=== PATIENT | female | born 1945 | race Caucasian/White ===

== ENCOUNTER 2020-07-22 14:45 | Emergency (ER) | payer MEDICARE, BC ==
--- NOTE | 2020-07-22 15:51 | EDM.PDOC ---
<Jeromy Bar - Last Filed: 07/22/20 17:15> ED HPI GENERAL MEDICAL PROBLEM - General Chief Complaint: Abdominal Pain Stated Complaint: LEFT LOWER ABD PAIN Time Seen by Provider: 07/22/20 15:36 Source of Information: Reports: Patient History Limitations: Reports: No Limitations - History of Present Illness INITIAL COMMENTS - FREE TEXT/NARRATIVE: Patient presents for evaluation of lower abdominal pain, bloating, frequent stooling over the last 5 days. She had a previous episode earlier in the month, around 13 July, and that was self-limited. Beginning on Thursday, 18 July, she noticed a return of lower abdominal intermittent cramping and frequent light and eventually mucus filled stool. Her actual stool production is less but most of what she produces when she goes to have a bowel movement is a tannish colored mucus. She will have a dozen or so bowel movements per day. Food intake has been reduced because her appetite is less but if she eats it seems to make symptoms worse. She was evaluated in the urgent care on June and provided a stool sample which they were going to test for C. difficile. Results have not finalized yet. Earlier this month, she was placed on a course of clindamycin prior to an upcoming dental procedure. Since being seen in urgent care 2 days ago, feels as though her symptoms have worsened and she noticed a little bit of bloody tinge to the mucus output from the rectum. Her pain is lower abdomen but more left sided lower abdomen. No fever or chills. No real nausea but she does have reduced appetite and food intake. She does have a previous history of diverticulitis but nothing recently. Onset: Gradual Duration: Day(s): (5) Location: Reports: Abdomen. Denies: Back Quality: Reports: Ache, Burning, Dull Severity: Moderate Improves with: Reports: None Worsens with: Reports: Eating, Movement Context: Denies: Sick Contact Associated Symptoms: Reports: Loss of Appetite, Malaise. Denies: Nausea/Vomiting Abdominal Pain Score (Numeric/FACES): 10 - Related Data Allergies Allergy/AdvReac Type Severity Reaction Status Date / Time Penicillins Allergy Hives Verified 07/22/20 15:48 Home Meds: Home Meds traMADol [Take Home: traMADol 50 MG, 4 Tab Pack] 1 tab PO TID PRN 11/12/15 [History] L.acidoph,Paracasei, B.lactis [Probiotic] 1 each PO DAILY 07/22/20 [History] Levothyroxine 75 mcg PO ACBREAKFAST 07/22/20 [History] Loperamide [Imodium] 2 mg PO QID PRN 07/22/20 [History] lisinopriL [Lisinopril] 20 mg PO DAILY 07/22/20 [History] Past Medical History HEENT History: Reports: Impaired Vision Cardiovascular History: Reports: Arrhythmia Musculoskeletal History: Reports: Fracture Psychiatric History: Reports: Anxiety Endocrine/Metabolic History: Reports: Hypothyroidism Hematologic History: Reports: Blood Transfusion(s) Oncologic (Cancer) History: Reports: Breast - Past Surgical History Musculoskeletal Surgical History: Reports: Other (See Below) Social & Family History - Living Situation & Occupation Living situation: Reports: , with Spouse Occupation: Retired ED ROS GENERAL - Review of Systems Review Of Systems: See Below Constitutional: Reports: Malaise, Weakness, Decreased Appetite. Denies: Fever, Chills, Weight Loss HEENT: Reports: No Symptoms Respiratory: Reports: No Symptoms Cardiovascular: Reports: No Symptoms GI/Abdominal: Reports: Abdominal Pain, Decreased Appetite, Mucous in Stool. Denies: Distension : Reports: No Symptoms Musculoskeletal: Reports: No Symptoms ED EXAM, GI/ABD - Physical Exam Exam: See Below Exam Limited By: No Limitations General Appearance: Alert, Mild Distress Respiratory/Chest: No Respiratory Distress Cardiovascular: Tachycardia GI/Abdominal Exam: Tender (Lower abdomen with some left sided propensity to pain.), Abnormal Bowel Sounds (Frequent bowel sounds.). No: Distended, Guarding Course - Re-Assessments/Exams Free Text/Narrative Re-Assessment/Exam: 07/22/20 16:08 We will attempt to see if we can find the test result from stool sample given on Thursday. The clinic note indicates that if testing for C. difficile is negative the patient would be started empirically on Augmentin for suspected diverticulitis. If her other testing is negative, I would recommend CT scanning of the abdomen and pelvis prior to any antibiotic use. 07/22/20 17:15 I returned to review imaging and lab tests. The air pattern on the upright abdomen x-ray is nonspecific although there is a paucity of air in the descending and sigmoid colon region. Given her WBC count and tender abdomen, we need to look for diverticulitis as a possible cause of her symptoms. CT scan of the abdomen/pelvis with IV contrast will be ordered. On further investigation by staff, the C. difficile test ordered from the clinic 2 days ago was canceled by the lab because of the appearance of the specimen. I discussed with the patient that labs may cancel a C. difficile test if it is not obvious diarrhea. Mucus can represent C. difficile but in order to get a lab to run that specimen it may require some other notation in the orders. She will be given Toradol 30 mg IV and advance of the CT scan. Departure - Departure Disposition: Home, Self-Care 01 Clinical Impression: Clostridioides difficile infection - Discharge Information Referrals: PCP,None [Primary Care Provider] - Forms: ED Department Discharge Additional Instructions: Take metronidazole every 8 hrs until gone. Avoid all alcohol. Acetaminophen as needed for pain relief. Frequent hand washing with soap and water to limit spread. Diet as tolerated. See your doctor for recheck later in the week. <Eleno Garces G - Last Filed: 07/22/20 19:50> Course - Vital Signs Last Recorded V/S: Last Vital Signs Temp 36.2 C 07/22/20 15:41 Pulse 98 07/22/20 18:45 Resp 15 07/22/20 18:45 BP 94/38 L 07/22/20 18:45 Pulse Ox 93 L 07/22/20 18:45 - Orders/Labs/Meds Orders: Active Orders 24 hr Category Date Time Status Abdomen 1V Upright [CR] Stat Exams 07/22/20 15:57 Taken CDiff [CLOS DIFFICILE PCR W/REFLEX] [RM] Stat Lab 07/22/20 18:18 Results CLOSTRIDIUM DIFFICILE TOXIN [RM] Stat Lab 07/22/20 18:18 Results Sodium Chloride 0.9% [Normal Saline] 100 ml Med 07/22/20 17:30 Active IV ASDIRECTED Sodium Chloride 0.9% [Saline Flush] Med 07/22/20 17:11 Active 10 ml FLUSH ASDIRECTED PRN Saline Lock Insert [OM.PC] Routine Oth 07/22/20 17:11 Ordered Medication Orders Sodium Chloride (Normal Saline) 100 mls @ 3 mls/sec IV ASDIRECTED AUBREY Last Admin: 07/22/20 17:51 Dose: 3 mls/sec Documented by: FIEMSAR Sodium Chloride (Saline Flush) 10 ml FLUSH ASDIRECTED PRN PRN Reason: Keep Vein Open Last Admin: 07/22/20 17:51 Dose: 10 ml Documented by: GILLIAN Labs: Laboratory Tests 07/22/20 07/22/20 Range/Units 16:11 16:11 WBC 15.4 H (4.5-11.0) K/uL RBC 4.36 (3.30-5.50) M/uL Hgb 13.2 (12.0-15.0) g/dL Hct 40.7 (36.0-48.0) % MCV 93 (80-98) fL MCH 30 (27-31) pg MCHC 32 (32-36) % Plt Count 282 (150-400) K/uL Neut % (Auto) 82 H (36-66) % Lymph % (Auto) 7 L (24-44) % Ray % (Auto) 11 H (2-6) % Eos % (Auto) 0 L (2-4) % Baso % (Auto) 0 (0-1) % Sodium 136 L (140-148) mmol/L Potassium 4.1 (3.6-5.2) mmol/L Chloride 98 L (100-108) mmol/L Carbon Dioxide 25 (21-32) mmol/L Anion Gap 17.1 H (5.0-14.0) mmol/L BUN 16 (7-18) mg/dL Creatinine 1.3 H D (0.6-1.0) mg/dL Est Cr Clr Drug Dosing 31.79 mL/min Estimated GFR (MDRD) 40 L (>60) Glucose 111 H (74-106) mg/dL Calcium 8.1 L (8.5-10.1) mg/dL Total Bilirubin 0.4 (0.2-1.0) mg/dL AST 14 L (15-37) U/L ALT 17 (12-78) U/L Alkaline Phosphatase 49 (46-116) U/L C-Reactive Protein 14.07 H (0.0-0.3) mg/dL Total Protein 6.1 L (6.4-8.2) g/dL Albumin 2.5 L (3.4-5.0) g/dL Globulin 3.6 H (2.3-3.5) g/dL Albumin/Globulin Ratio 0.7 L (1.2-2.2) Lipase 50 L (73-393) U/L Meds: Medications Generic Name Dose Route Start Last Admin Trade Name Freq PRN Reason Stop Dose Admin Sodium Chloride 100 mls @ 3 mls/sec 07/22/20 17:30 07/22/20 17:51 Normal Saline IV 3 mls/sec ASDIRECTED AUBREY Administration Sodium Chloride 10 ml 07/22/20 17:11 07/22/20 17:51 Saline Flush FLUSH 10 ml ASDIRECTED PRN Administration Keep Vein Open Discontinued Medications Generic Name Dose Route Start Last Admin Trade Name Freq PRN Reason Stop Dose Admin Lactated Ringer's 1,000 mls @ 1,000 mls/hr 07/22/20 18:31 07/22/20 18:39 Ringers, Lactated IV 07/22/20 19:30 1,000 mls/hr BOLUS ONE Administration Iopamidol 100 ml 07/22/20 17:26 07/22/20 17:51 Isovue-300 (61%) IV 07/22/20 17:27 100 ml ONETIME ONE Administration Ketorolac Tromethamine 30 mg 07/22/20 17:14 07/22/20 17:31 Toradol IVPUSH 07/22/20 17:15 30 mg ONETIME ONE Administration Metronidazole 500 mg 07/22/20 19:38 07/22/20 19:45 Metronidazole PO 07/22/20 19:39 500 mg ONETIME ONE Administration Sodium Chloride 10 ml 07/22/20 17:26 07/22/20 17:30 Saline Flush FLUSH 07/22/20 17:27 10 ml ONETIME ONE Administration - Radiology Interpretation Free Text/Narrative:: CT abd/pelvis-IMPRESSION: Diffuse colonic wall thickening. Findings consistent with nonspecific colitis. Distended gallbladder with no gallbladder wall thickening, stones, sludge or pericholecystic fluid. Normal common bile duct. Dictated by Antwon Buitrago MD @ 07/22/2020 6:16:[address] Results Date: 07/22/20 CT Results Time: 18:29 Departure - Departure Time of Disposition: 19:55 Condition: Fair - Discharge Information *PRESCRIPTION DRUG MONITORING PROGRAM REVIEWED*: No *COPY OF PRESCRIPTION DRUG MONITORING REPORT IN PATIENT MARILEE: No Sepsis Event Note (ED) - Focused Exam Vital Signs: Vital Signs Temp Pulse Resp BP Pulse Ox 07/22/20 18:45 98 15 94/38 L 93 L 07/22/20 17:38 99 16 111/40 L 99 07/22/20 16:56 97 16 111/40 L 97 07/22/20 15:41 36.2 C 102 H 16 116/32 L 95 07/22/20 15:30 36.2 C 102 H 16 116/32 L 95
[2020-07-22] MEDS ORDERED: Sodium Chloride 0.9% 10 ML Syringe FLUSH PRN (17:11)
[2020-07-22] MEDS ORDERED: Ketorolac 30 MG/ML SDV IVPUSH ONE (17:14)
[2020-07-22] MEDS ORDERED: Sodium Chloride 0.9% 10 ML Syringe FLUSH ONE (17:26)
[2020-07-22] MEDS ORDERED: Iopamidol 612 MG/ML 500 ML Multipack Bottle IV ONE (17:26)
[2020-07-22] MEDS ORDERED: Sodium Chloride 0.9% 100 ML IV SCH (17:30)
--- NOTE | 2020-07-22 18:18 | CRLCT ---
INDICATION: Left lower quadrant pain, diarrhea TECHNIQUE: CT abdomen and pelvis acquired with IV contrast. 100 cc Isovue-300 COMPARISON: None FINDINGS: Lower chest: Unremarkable. Liver: 2.8 centimeter x 2.5 centimeter lobulated cyst versus multiple small cysts with thin septations involving the inferior right lobe. Spleen: Unremarkable. Pancreas: Unremarkable. Gallbladder and bile ducts: Distended gallbladder with no gallbladder wall thickening, stones, sludge or pericholecystic fluid. Normal appearing common bile duct. Kidneys: Unremarkable. Adrenal glands: Unremarkable. GI tract: Diffuse colonic wall thickening more prominent involving the transverse colon. Findings consistent with nonspecific colitis.. Appendix is normal. Vascular structures: Unremarkable. Lymph nodes: Unremarkable. Miscellaneous: Unremarkable. No free air or significant free fluid. Pelvic Organs: Prominent periuterine veins. Diffuse urinary bladder wall thickening. Bones: Unremarkable for age. IMPRESSION: Diffuse colonic wall thickening. Findings consistent with nonspecific colitis. Distended gallbladder with no gallbladder wall thickening, stones, sludge or pericholecystic fluid. Normal common bile duct. Dictated by Antwon Buitrago MD @ 07/22/2020 6:16:42 PM Please note that all CT scans at this facility use dose modulation, iterative reconstruction, and/or weight-based dosing when appropriate to reduce radiation dose to as low as reasonably achievable. Dictated by: Antwon Buitrago MD @ 07/22/2020 18:16:53 (Electronically Signed)
[2020-07-22] MEDS ORDERED: Lactated Ringers 1,000 ML IV ONE (18:31)
[2020-07-22 18:46] VITALS: BP 94/38; PULSE 98
[2020-07-22] MEDS ORDERED: metroNIDAZOLE 250 MG Tab PO ONE (19:38)
--- NOTE | 2020-07-23 15:20 | CR ---
Abdomen 1V Upright CLINICAL HISTORY: Lower abdominal pain and cramping FINDINGS: There are scattered air-filled loops of small bowel and colon. Small intestinal configuration is nonacute. There is some appearance of haustral thickening in the hepatic flexure and distal transverse colon. IMPRESSION: Posterolateral thickening in the hepatic and splenic flexure region suggests possible colonic mucosal thickening
== END 2020-07-22 20:05 | disposition home or self-care (01) ==
LOC: JP.ED 14:45
DX: B96.89 Other specified bacterial agents as the cause of diseases classified elsewhere (principal); R00.0 Tachycardia, unspecified; Z88.0 Allergy status to penicillin; Z79.899 Other long term (current) drug therapy
CPT/HCPCS: 36415; 74018; 74177; 80053; 83690; 85025; 86140; 87493; 96361; 96374; 99284; A9270; J1885; J7050; J7120; Q9967

== ENCOUNTER 2020-07-23 23:23 | Emergency (ER) | payer MEDICARE, BC ==
[2020-07-23] MEDS ORDERED: Lactated Ringers 1,000 ML IV ONE (23:30)
[2020-07-23] MEDS ORDERED: Ondansetron 4 MG Tab.DIS PO PRN (23:40)
[2020-07-23] MEDS ORDERED: Ketorolac 30 MG/ML SDV IVPUSH PRN (23:40)
[2020-07-23] MEDS ORDERED: LORazepam 2 MG/ML SDV IV PRN (23:40)
[2020-07-23] MEDS ORDERED: Ondansetron 4 MG/2 ML SDV IV PRN (23:40)
[2020-07-23] MEDS ORDERED: Acetaminophen 325 MG Tab PO PRN (23:40)
[2020-07-23] MEDS ORDERED: Ibuprofen 600 MG Tab PO PRN (23:40)
[2020-07-23] MEDS ORDERED: Lactobacillus Rhamnosus GG (Probiotic) Cap PO SCH (23:45)
[2020-07-24] MEDS ORDERED: Vancomycin 250 MG/5 ML ML Oral Solution PO SCH
--- NOTE | 2020-07-24 00:06 | EDM.PDOC ---
ED HPI GENERAL MEDICAL PROBLEM - General Chief Complaint: Abdominal Pain Stated Complaint: ABD PAIN Time Seen by Provider: 07/23/20 23:55 Source of Information: Reports: Patient, Old Records, RN History Limitations: Reports: No Limitations - History of Present Illness INITIAL COMMENTS - FREE TEXT/NARRATIVE: 75 yo female was seen in the ER last night and dx with c.diff colitis. Her wbc ct was a little high at 15K, but her vitals were normal. Her CT showed some colonic wall thickening. She was sent home on oral metronidazole, but since then has gotten more distended and weak. No fever. Here for reevaluation. Onset: Gradual Duration: Day(s):, Getting Worse Location: Reports: Abdomen Quality: Reports: Pressure Severity: Moderate Improves with: Reports: None Worsens with: Reports: Other (time) Context: Reports: Other (See HPI) Associated Symptoms: Reports: Weakness. 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 (see below) (metronidazole) Abdomen Pain Score (Numeric/FACES): 10 - Related Data Allergies Allergy/AdvReac Type Severity Reaction Status Date / Time Penicillins Allergy Hives Verified 07/23/20 23:46 Home Meds: Home Meds traMADol [Take Home: traMADol 50 MG, 4 Tab Pack] 1 tab PO TID PRN 11/12/15 [History] L.acidoph,Paracasei, B.lactis [Probiotic] 1 each PO DAILY 07/22/20 [History] Levothyroxine 75 mcg PO ACBREAKFAST 07/22/20 [History] Loperamide [Imodium] 2 mg PO QID PRN 07/22/20 [History] lisinopriL [Lisinopril] 20 mg PO DAILY 07/22/20 [History] metroNIDAZOLE [Flagyl] 500 mg PO TID 07/23/20 [History] Past Medical History HEENT History: Reports: Impaired Vision Cardiovascular History: Reports: Arrhythmia Other Cardiovascular History: PVC Respiratory History: Reports: None Gastrointestinal History: Reports: Diverticulosis, Other (See Below) Other Gastrointestinal History: colitis and c diff Genitourinary History: Reports: None 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: Musculoskeletal History: Reports: Fracture Other Musculoskeletal History: chronic foot pain Neurological History: Reports: Neuropathy, Peripheral Psychiatric History: Reports: Anxiety Endocrine/Metabolic History: Reports: Hypothyroidism Hematologic History: Reports: Blood Transfusion(s) Oncologic (Cancer) History: Reports: Breast Dermatologic History: Reports: None - Infectious Disease History Infectious Disease History: Reports: Chicken Pox, Measles - Past Surgical History GI Surgical History: Reports: Colonoscopy Neurological Surgical History: Reports: Laminectomy Musculoskeletal Surgical History: Reports: Other (See Below) Social & Family History - Tobacco Use Smoking Status *Q: Never Smoker Second Hand Smoke Exposure: No - Caffeine Use Caffeine Use: Reports: Coffee - Alcohol Use Days Per Week of Alcohol Use: 7 Number of Drinks Per Day: 1 Total Drinks Per Week: 7 - Recreational Drug Use Recreational Drug Use: No - Living Situation & Occupation Living situation: Reports: , with Spouse Occupation: Retired ED ROS GENERAL - Review of Systems Review Of Systems: See Below Constitutional: Reports: Malaise, Weakness, Decreased Appetite HEENT: Reports: No Symptoms Respiratory: Reports: No Symptoms Cardiovascular: Reports: Lightheadedness Endocrine: Reports: No Symptoms GI/Abdominal: Reports: Abdominal Pain, Diarrhea, Distension, Mucous in Stool. Denies: Black Stool, Bloody Stool, Hematemesis, Hematochezia, Melena, Nausea, Vomiting : Reports: No Symptoms Musculoskeletal: Reports: No Symptoms Skin: Reports: No Symptoms ED EXAM, GI/ABD - Physical Exam Exam: See Below Exam Limited By: No Limitations General Appearance: Alert, WD/WN, Mild Distress Eyes: Bilateral: Normal Appearance Ears: Normal External Exam, Normal Canal, Hearing Grossly Normal, Normal TMs Nose: Normal Inspection, No Blood Throat/Mouth: Normal Inspection, Normal Lips, Normal Oropharynx, Normal Voice, No Airway Compromise Head: Atraumatic, Normocephalic Neck: Normal Inspection Respiratory/Chest: No Respiratory Distress, Lungs Clear, Normal Breath Sounds, No Accessory Muscle Use Cardiovascular: Regular Rate, Rhythm, No Edema, Tachycardia GI/Abdominal Exam: Distended, Guarding, Tender. No: Soft, No Distention, Rigid, Rebound Back Exam: Normal Inspection. No: CVA Tenderness (R), CVA Tenderness (L) Extremities: Normal Inspection, Normal Range of Motion, Non-Tender, No Pedal Edema Neurological: Alert, Oriented, CN II-XII Intact, Normal Cognition, No Motor/Sensory Deficits Psychiatric: Normal Affect, Normal Mood Skin Exam: Warm, Dry, Intact, Normal Color, No Rash Course - Orders/Labs/Meds Orders: Active Orders 24 hr Category Date Time Status Patient Status Manage Transfer [TRANSFER] Routine ADT 07/23/20 23:47 Active Patient Status [ADT] Routine ADT 07/23/20 23:40 Active Bedrest Bedside Commode [RC] ASDIRECTED Care 07/23/20 23:40 Active Cardiac Monitoring [RC] CONTINUOUS Care 07/23/20 23:42 Active Oxygen Therapy [RC] PRN Care 07/23/20 23:40 Active Pulse Oximetry [RC] CONTINUOUS Care 07/23/20 23:42 Active Up With Assistance [RC] ASDIRECTED Care 07/23/20 23:40 Active VTE/DVT Education [RC] Per Unit Routine Care 07/23/20 23:40 Active Vital Signs [RC] Q4H Care 07/23/20 23:40 Active Full Liquid Diet [DIET] Diet 07/23/20 Breakfast Ordered CBC W/O DIFF,HEMOGRAM [HEME] Stat Lab 07/23/20 23:50 Received COMPREHENSIVE METABOLIC PN,CMP [CHEM] Stat Lab 07/23/20 23:50 Received LACTIC ACID [CHEM] Stat Lab 07/23/20 23:50 Received Acetaminophen [TylenoL] Med 07/23/20 23:40 Ordered 650 mg PO Q4H PRN Dextrose 5%-0.9% NaCl [Dextrose 5%-Normal Saline] 1,000 Med 07/23/20 23:45 Ordered ml IV ASDIRECTED Ibuprofen [Motrin] Med 07/23/20 23:40 Ordered 600 mg PO Q6H PRN Ketorolac [Toradol] Med 07/23/20 23:40 Ordered 30 mg IVPUSH Q6H PRN LORazepam [Ativan] Med 07/23/20 23:40 Ordered 1 mg IV Q6H PRN Lactated Ringers [Ringers, Lactated] 1,000 ml Med 07/23/20 23:30 Active IV BOLUS Lactobacillus Rhamnosus GG [Culturelle] Med 07/23/20 23:45 Ordered 2 cap PO BID Ondansetron [Zofran ODT] Med 07/23/20 23:40 Ordered 4 mg PO Q6H PRN Ondansetron [Zofran] Med 07/23/20 23:40 Ordered 4 mg IV Q4H PRN Vancomycin [Vancocin 250 MG/5 ML Soln] Med 07/24/20 06:00 Ordered 250 mg PO QID Resuscitation Status Routine Resus Stat 07/23/20 23:40 Ordered Medication Orders Acetaminophen (Tylenol) 650 mg PO Q4H PRN PRN Reason: Pain (Mild 1-3)/fever Lactated Ringer's (Ringers, Lactated) 1,000 mls @ 1,000 mls/hr IV BOLUS ONE Stop: 07/24/20 00:29 Dextrose/Sodium Chloride (Dextrose 5%-Normal Saline) 1,000 mls @ 150 mls/hr IV ASDIRECTED [facility] Ibuprofen (Motrin) 600 mg PO Q6H PRN PRN Reason: Pain/Fever Ketorolac Tromethamine (Toradol) 30 mg IVPUSH Q6H PRN PRN Reason: Pain (moderate 4-6) Lactobacillus Rhamnosus (Culturelle) 2 cap PO BID AUBREY Lorazepam (Ativan) 1 mg IV Q6H PRN PRN Reason: Nausea/Vomiting Ondansetron HCl (Zofran Odt) 4 mg PO Q6H PRN PRN Reason: Nausea able to take PO Ondansetron HCl (Zofran) 4 mg IV Q4H PRN PRN Reason: Nausea/Vomiting Vancomycin HCl (Vancocin 250 Mg/5 Ml Soln) 250 mg PO QID [facility] Meds: Medications Generic Name Dose Route Start Last Admin Trade Name Freq PRN Reason Stop Dose Admin Acetaminophen 650 mg 07/23/20 23:40 Tylenol PO Q4H PRN Pain (Mild 1-3)/fever Lactated Ringer's 1,000 mls @ 1,000 mls/hr 07/23/20 23:30 Ringers, Lactated IV 07/24/20 00:29 BOLUS ONE Dextrose/Sodium Chloride 1,000 mls @ 150 mls/hr 07/23/20 23:45 Dextrose 5%-Normal Saline IV ASDIRECTED [facility] Ibuprofen 600 mg 07/23/20 23:40 Motrin PO Q6H PRN Pain/Fever Ketorolac Tromethamine 30 mg 07/23/20 23:40 Toradol IVPUSH Q6H PRN Pain (moderate 4-6) Lactobacillus Rhamnosus 2 cap 07/23/20 23:45 Culturelle PO BID AUBREY Lorazepam 1 mg 07/23/20 23:40 Ativan IV Q6H PRN Nausea/Vomiting Ondansetron HCl 4 mg 08/31/20 23:40 Zofran Odt PO Q6H PRN Nausea able to take PO Ondansetron HCl 4 mg 07/23/20 23:40 Zofran IV Q4H PRN Nausea/Vomiting Vancomycin HCl 250 mg 07/24/20 06:00 Vancocin 250 Mg/5 Ml Soln PO QID AUBREY Departure - Departure Time of Disposition: 00:06 Disposition: Admitted As Inpatient 65 Condition: Serious Clinical Impression: Clostridium difficile colitis - Discharge Information *COPY OF PRESCRIPTION DRUG MONITORING REPORT IN PATIENT MARILEE: Not Applicable Referrals: PCP,None [Primary Care Provider] - - My Orders Last 24 Hours: My Active Orders 07/23/20 23:30 Lactated Ringers [Ringers, Lactated] 1,000 ml IV BOLUS 07/23/20 23:50 CBC W/O DIFF,HEMOGRAM [HEME] Stat - Assessment/Plan Last 24 Hours: My Active Orders 07/23/20 23:30 Lactated Ringers [Ringers, Lactated] 1,000 ml IV BOLUS 07/23/20 23:50 CBC W/O DIFF,HEMOGRAM [HEME] Stat
[2020-07-24] MEDS ORDERED: Ondansetron 4 MG/2 ML SDV IM ONE (00:07)
[2020-07-24] MEDS ORDERED: Ketorolac 30 MG/ML SDV IVPUSH ONE (00:07)
[2020-07-24] MEDS ORDERED: Ondansetron 4 MG/2 ML SDV IVPUSH ONE (00:17)
[2020-07-24] MEDS ORDERED: Lactated Ringers 1,000 ML IV ONE (00:38)
[2020-07-24] MEDS ORDERED: Vancomycin 250 MG/5 ML ML Oral Solution PO STA (00:40)
--- NOTE | 2020-07-24 00:49 | PCM.HP.2 ---
H&P History of Present Illness - General Date of Service: 07/24/20 Admit Problem/Dx: Admission Diagnosis/Problem Admission Diagnosis/Problem Clostridium difficile enterocolitis Source of Information: Patient, Old Records History Limitations: Reports: No Limitations - History of Present Illness Initial Comments - Free Text/Narative: Patient is a 75yo female who was diagnosed with C.diff colitis last night and now presents with worsening symptoms. She is being admitted to the hospital for intractable pain and worsening diarrhea. Upon review of labs after admission the patient is found to have fulminant c. diff colitis with signs of septic shock. Patient has elevated lactate, WBC, Creatinine, BUN, and also has decreased albumin. Patient's BP is low at 85/55 with fluids. Patient will be started on PO Vancomycin prior to leaving hospital, as well as working towards 30cc/kg fluid rehydration. Onset of Symptoms: Reports: Unknown/Unsure Abdomen Pain Score (Numeric/FACES): 10 - Related Data Allergies/Adverse Reactions: Allergies Allergy/AdvReac Type Severity Reaction Status Date / Time Penicillins Allergy Hives Verified 07/23/20 23:46 Home Medications: Home Meds traMADol [Take Home: traMADol 50 MG, 4 Tab Pack] 1 tab PO TID PRN 11/12/15 [History] L.acidoph,Paracasei, B.lactis [Probiotic] 1 each PO DAILY 07/22/20 [History] Levothyroxine 75 mcg PO ACBREAKFAST 07/22/20 [History] Loperamide [Imodium] 2 mg PO QID PRN 07/22/20 [History] lisinopriL [Lisinopril] 20 mg PO DAILY 07/22/20 [History] metroNIDAZOLE [Flagyl] 500 mg PO TID 07/23/20 [History] Past Medical History HEENT History: Reports: Impaired Vision Cardiovascular History: Reports: Arrhythmia Other Cardiovascular History: PVC Respiratory History: Reports: None Gastrointestinal History: Reports: Diverticulosis, Other (See Below) Other Gastrointestinal History: colitis and c diff Genitourinary History: Reports: None 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: Musculoskeletal History: Reports: Fracture Other Musculoskeletal History: chronic foot pain Neurological History: Reports: Neuropathy, Peripheral Psychiatric History: Reports: Anxiety Endocrine/Metabolic History: Reports: Hypothyroidism Hematologic History: Reports: Blood Transfusion(s) Oncologic (Cancer) History: Reports: Breast Dermatologic History: Reports: None - Infectious Disease History Infectious Disease History: Reports: Chicken Pox, Measles - Past Surgical History GI Surgical History: Reports: Colonoscopy Neurological Surgical History: Reports: Laminectomy Musculoskeletal Surgical History: Reports: Other (See Below) Social & Family History - Tobacco Use Smoking Status *Q: Never Smoker Second Hand Smoke Exposure: No - Caffeine Use Caffeine Use: Reports: Coffee - Alcohol Use Days Per Week of Alcohol Use: 7 Number of Drinks Per Day: 1 Total Drinks Per Week: 7 - Recreational Drug Use Recreational Drug Use: No - Living Situation & Occupation Living situation: Reports: , with Spouse Occupation: Retired H&P Review of Systems - Review of Systems: Review Of Systems: See Below General: Reports: Fever, Chills, Weakness, Decreased Appetite HEENT: Reports: No Symptoms Pulmonary: Reports: No Symptoms Cardiovascular: Reports: No Symptoms Gastrointestinal: Reports: Abdominal Pain, Anorexia, Diarrhea, Distension Genitourinary: Reports: No Symptoms Musculoskeletal: Reports: No Symptoms Skin: Reports: Mottled, Pallor Psychiatric: Reports: No Symptoms Neurological: Reports: No Symptoms Hematologic/Lymphatic: Reports: No Symptoms Immunologic: Reports: No Symptoms Exam - Exam Exam: See Below - Vital Signs Vital Signs: Last Vital Signs Temp 35.8 C L 07/24/20 00:28 Pulse 104 H 07/24/20 00:28 Resp 16 07/24/20 00:28 BP 85/47 L 07/24/20 00:28 Pulse Ox 91 L 07/24/20 00:28 Weight: 55.338 kg - Exam General: Alert, Oriented, Cooperative, Moderate Distress HEENT: PERRLA, Hearing Intact, Mucosa Moist & [place], Nares Patent, Normal Nasal Septum, Posterior Pharynx Clear, Conjunctiva Clear, EOMI, EACs Clear, TMs Clear Neck: Supple, Trachea Midline, 2 Lungs: Clear to Auscultation, Normal Respiratory Effort Cardiovascular: Regular Rhythm, Normal S1, Normal S2, Tachycardia GI/Abdominal Exam: Distended (unable to palpate beyond light touch due to extreme pain), Rebound (unable to palpate beyond light touch due to extreme pain) (Female) Exam: Deferred Rectal (Female) Exam: Deferred Back Exam: Normal Inspection, Full Range of Motion, NT Extremities: Normal Inspection, Normal Range of Motion, Non-Tender, No Pedal Edema, Slow Capillary Refill. No: Normal Capillary Refill Skin: Dry, Intact Neurological: Cranial Nerves Intact, Reflexes Equal Bilateral Neuro Extensive - Mental Status: Alert, Oriented x3, Normal Mood/Affect, Normal Cognition Neuro Extensive - Motor, Sensory, Reflexes: CN II-XII Intact, Normal Gait, Normal Reflexes Psychiatric: Alert, Normal Affect, Normal Mood - Patient Data Lab Results Last 24 hrs: Laboratory Results - last 24 hr 07/23/20 07/23/20 07/23/20 Range/Units 23:50 23:50 23:50 WBC 24.2 H (4.5-11.0) K/uL RBC 4.92 (3.30-5.50) M/uL Hgb 14.5 (12.0-15.0) g/dL Hct 44.7 (36.0-48.0) % MCV 91 (80-98) fL MCH 30 (27-31) pg MCHC 32 (32-36) % Plt Count 262 (150-400) K/uL Sodium 134 L (140-148) mmol/L Potassium 4.1 (3.6-5.2) mmol/L Chloride 98 L (100-108) mmol/L Carbon Dioxide 21 (21-32) mmol/L Anion Gap 19.1 H (5.0-14.0) mmol/L BUN 38 H D (7-18) mg/dL Creatinine 3.0 H D (0.6-1.0) mg/dL Est Cr Clr Drug Dosing 13.78 mL/min Estimated GFR (MDRD) 15 L (>60) Glucose 145 H (74-106) mg/dL Lactic Acid 5.0 H (0.4-2.0) mmol/L Calcium 7.9 L (8.5-10.1) mg/dL Total Bilirubin 0.4 (0.2-1.0) mg/dL AST 25 D (15-37) U/L ALT 20 (12-78) U/L Alkaline Phosphatase 54 (46-116) U/L Total Protein 5.8 L (6.4-8.2) g/dL Albumin 2.1 L (3.4-5.0) g/dL Globulin 3.7 H (2.3-3.5) g/dL Albumin/Globulin Ratio 0.6 L (1.2-2.2) Result Diagrams: 07/23/20 23:50 07/23/20 23:50 Sepsis Event Note - Evaluation Sepsis Screening Result: Possible Severe Sepsis Risk - Focused Exam Vital Signs: Vital Signs Temp Pulse Resp BP Pulse Ox 07/24/20 00:28 35.8 C L 104 H 16 85/47 L 91 L 07/23/20 23:59 35.8 C L 109 H 16 79/44 L 94 L - Problem List (1) Septic shock due to Clostridium difficile SNOMED Code(s): 0247120048537202 ICD Code: A41.4 - SEPSIS DUE TO ANAEROBES; R65.21 - SEVERE SEPSIS WITH SEPTIC SHOCK Status: Acute Current Visit: Yes Onset Date: ~07/23/20 Problem Details: Patient due to pain and concern for fulminant or widespread C.diff will be transferred to [facility] per patient's request. Patient is hypotensive but responsive. Will start norepinephrine at 4mcg/min drip to maintain a map >65. Oral vancomycin started at 250mg PO, as well as IV metronidazole 500mg (2) Clostridium difficile colitis SNOMED Code(s): 849692903 ICD Code: A04.72 - ENTEROCOLITIS D/T CLOSTRIDIUM DIFFICILE, NOT SPCF RECUR Status: Acute Current Visit: Yes Onset Date: Unknown Problem Details: Patient due to pain and concern for fulminant or widespread C.diff will be transferred to [facility] per patient's request. Patient is hypotensive but responsive. Will start norepinephrine at 4mcg/min drip to maintain a map >65. Oral vancomycin started at 250mg PO, as well as IV metronidazole 500mg Problem List Initiated/Reviewed/Updated: Yes Orders Last 24hrs: Active Orders 24 hr Category Date Time Status Patient Status Manage Transfer [TRANSFER] Routine ADT 07/23/20 23:47 Active Patient Status [ADT] Routine ADT 07/23/20 23:40 Active Bedrest Bedside Commode [RC] ASDIRECTED Care 07/23/20 23:40 Active Cardiac Monitoring [RC] CONTINUOUS Care 07/23/20 23:42 Active Oxygen Therapy [RC] PRN Care 07/23/20 23:40 Active Pulse Oximetry [RC] CONTINUOUS Care 07/23/20 23:42 Active Up With Assistance [RC] ASDIRECTED Care 07/23/20 23:40 Active VTE/DVT Education [RC] Per Unit Routine Care 07/23/20 23:40 Active Vital Signs [RC] Q4H Care 07/23/20 23:40 Active Full Liquid Diet [DIET] Diet 07/23/20 Breakfast Ordered Acetaminophen [TylenoL] Med 07/23/20 23:40 Active 650 mg PO Q4H PRN Dextrose 5%-0.9% NaCl [Dextrose 5%-Normal Saline] 1,000 Med 07/25/20 00:30 Active ml IV ASDIRECTED Ibuprofen [Motrin] Med 07/23/20 23:40 Active 600 mg PO Q6H PRN Ketorolac [Toradol] Med 07/23/20 23:40 Active 30 mg IVPUSH Q6H PRN LORazepam [Ativan] Med 07/23/20 23:40 Active 1 mg IV Q6H PRN Lactated Ringers [Ringers, Lactated] 1,000 ml Med 07/24/20 00:38 Ordered IV BOLUS Lactobacillus Rhamnosus GG [Culturelle] Med 07/23/20 23:45 Active 2 cap PO BID Levothyroxine Med 07/24/20 07:30 Active 75 mcg PO ACBREAKFAST Ondansetron [Zofran ODT] Med 07/23/20 23:40 Active 4 mg PO Q6H PRN Ondansetron [Zofran] Med 07/23/20 23:40 Active 4 mg IV Q4H PRN Vancomycin [Vancocin 250 MG/5 ML Soln] Med 07/24/20 00:00 Active 250 mg PO QID Resuscitation Status Routine Resus Stat 07/23/20 23:40 Ordered Medication Orders Acetaminophen (Tylenol) 650 mg PO Q4H PRN PRN Reason: Pain (Mild 1-3)/fever Dextrose/Sodium Chloride (Dextrose 5%-Normal Saline) 1,000 mls @ 150 mls/hr IV ASDIRECTED AUBREY Lactated Ringer's (Ringers, Lactated) 1,000 mls @ 999 mls/hr IV BOLUS ONE Stop: 07/24/20 01:38 Ibuprofen (Motrin) 600 mg PO Q6H PRN PRN Reason: Pain/Fever Ketorolac Tromethamine (Toradol) 30 mg IVPUSH Q6H PRN PRN Reason: Pain (moderate 4-6) Lactobacillus Rhamnosus (Culturelle) 2 cap PO BID AUBREY Levothyroxine Sodium (Levothyroxine) 75 mcg PO ACBREAKFAST AUBREY Lorazepam (Ativan) 1 mg IV Q6H PRN PRN Reason: Nausea/Vomiting Ondansetron HCl (Zofran Odt) 4 mg PO Q6H PRN PRN Reason: Nausea able to take PO Ondansetron HCl (Zofran) 4 mg IV Q4H PRN PRN Reason: Nausea/Vomiting Vancomycin HCl (Vancocin 250 Mg/5 Ml Soln) 250 mg PO QID AUBREY
[2020-07-24] MEDS: Vancomycin 1 GM SDV ONE ×2 (00:52→01:01)
[2020-07-24] MEDS ORDERED: metroNIDAZOLE/Normal Saline 500 MG in Premix Bag 1 BAG IV ONE (01:00)
[2020-07-24] MEDS ORDERED: Norepinephrine 4 MG in Dextrose 5% in Water 246 ML IV SCH ×2 (01:15)
[2020-07-24 02:01] VITALS: BP 100/51; PULSE 99
[2020-07-24] MEDS ORDERED: Levothyroxine 25 MCG Tab PO SCH (07:30)
[2020-07-25] MEDS ORDERED: Dextrose 5%-0.9% NaCl 1,000 ML IV SCH (00:30)
== END 2020-07-24 01:50 | disposition critical access hospital (66) ==
LOC: JP.ED 23:23
DX: A04.72 Enterocolitis due to Clostridium difficile, not specified as recurrent (principal); E03.9 Hypothyroidism, unspecified; Z79.899 Other long term (current) drug therapy; G62.9 Polyneuropathy, unspecified; Z88.0 Allergy status to penicillin
CPT/HCPCS: 36415; 80053; 83605; 85027; 96361; 96374; 96375; 99285; A9270; J1885; J2405; J7060; J7120; J3370

== ENCOUNTER 2021-03-19 17:53 | Emergency (ER) | payer MEDICARE, BC ==
--- NOTE | 2021-03-19 18:29 | EDM.PDOC ---
ED HPI GENERAL MEDICAL PROBLEM - General Chief Complaint: Upper Extremity Injury/Pain Stated Complaint: FALL HURT LEFT WRIST Time Seen by Provider: 03/19/21 18:20 Source of Information: Reports: Patient, Family History Limitations: Reports: No Limitations - History of Present Illness INITIAL COMMENTS - FREE TEXT/NARRATIVE: 75-year-old female who stumbled in her garage falling onto her left wrist, also has a small abrasion on her left elbow and left knee. She is not concerned about her elbow or knee, but her wrist is very painful, swollen, and there appears to be a slight deformity. She can move her fingers and has no paresthesias or numbness. Onset: Sudden Duration: Hour(s): (Within the last hour) Location: Reports: Upper Extremity, Left Quality: Reports: Sharp, Stabbing Improves with: Reports: Movement Associated Symptoms: Reports: Other (Just small abrasions on her knee and elbow). Denies: Chest Pain, Cough, Fever/Chills, Headaches, Malaise, Shortness of Breath, Weakness Left Wrist Pain Score (Numeric/FACES): 8 - Related Data Allergies Allergy/AdvReac Type Severity Reaction Status Date / Time Penicillins Allergy Severe Hives Verified 03/19/21 18:10 Home Meds: Home Meds Levothyroxine 100 mcg PO ACBREAKFAST 07/22/20 [History] lisinopriL [Lisinopril] 20 mg PO DAILY 07/22/20 [History] Cholecalciferol (Vitamin D3) [Vitamin D3] 4,000 unit PO DAILY 03/19/21 [History] Ibuprofen [Motrin] 600 mg PO ASDIRECTED PRN 03/19/21 [History] Multivitamin 1 each PO DAILY 03/19/21 [History] Past Medical History HEENT History: Reports: Impaired Vision, Macular Degeneration Cardiovascular History: Reports: Arrhythmia Other Cardiovascular History: PVC Respiratory History: Reports: None Gastrointestinal History: Reports: Diverticulosis, Other (See Below) Other Gastrointestinal History: colitis and c diff. 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: Musculoskeletal History: Reports: Fracture Other Musculoskeletal History: chronic foot pain Neurological History: Reports: Neuropathy, Peripheral Psychiatric History: Reports: Anxiety Endocrine/Metabolic History: Reports: Hypothyroidism Hematologic History: Reports: Blood Transfusion(s) Oncologic (Cancer) History: Reports: Breast Dermatologic History: Reports: None - Infectious Disease History Infectious Disease History: Reports: Chicken Pox, Measles, Mumps - Past Surgical History HEENT Surgical History: Reports: Cataract Surgery GI Surgical History: Reports: Colonoscopy Female Surgical History: Reports: Other (See Below) Other Female Surgeries/Procedures: lumpectomy Neurological Surgical History: Reports: Laminectomy Musculoskeletal Surgical History: Reports: Other (See Below) Other Musculoskeletal Surgeries/Procedures:: transposition of ulnar nerve. Oncologic Surgical History: Reports: Lumpectomy Other Oncologic Surgeries/Procedures: right side Social & Family History - Tobacco Use Tobacco Use Status *Q: Never Tobacco User - Caffeine Use Caffeine Use: Reports: Coffee - Alcohol Use Days Per Week of Alcohol Use: 7 Number of Drinks Per Day: 1 Total Drinks Per Week: 7 - Recreational Drug Use Recreational Drug Use: No - Living Situation & Occupation Living situation: Reports: , with Spouse Occupation: Retired Review of Systems - Review of Systems Review Of Systems: See Below Constitutional: Denies: Fever Respiratory: Reports: No Symptoms Cardiovascular: Reports: No Symptoms GI/Abdominal: Reports: No Symptoms Musculoskeletal: Reports: Other (Left wrist pain) Skin: Reports: Other (Abrasions as mentioned) Neurological: Reports: No Symptoms. Denies: Paresthesia ED EXAM, GENERAL - Physical Exam Exam: See Below Free Text/Narrative:: When I went into the exam room her wedding ring was still on her left hand, this was removed without difficulty Exam Limited By: No Limitations General Appearance: Alert, No Apparent Distress (Looks uncomfortable but not distressed) Head: Atraumatic Neck: Non-Tender Respiratory/Chest: No Respiratory Distress Extremities: Other (Superficial abrasion is present on the lateral left elbow, there is no bony tenderness or swelling. The wrist has swelling and slight deformity over the distal radius, she has full range of motion of the fingers and thumb and good circulation. The wrist is very tender to palpation) Neurological: Alert, Oriented Course - Vital Signs Last Recorded V/S: Last Vital Signs Temp 97.1 F 03/19/21 18:23 Pulse 70 03/19/21 18:23 Resp 16 03/19/21 18:23 BP 122/49 L 03/19/21 18:23 Pulse Ox 98 03/19/21 18:23 - Orders/Labs/Meds Orders: Active Orders 24 hr Category Date Time Status Consult to Orthopedic Clinic [CONS] Routine Cons 03/19/21 19:42 Active Wrist Comp Min 3V Lt [CR] Stat Exams 03/19/21 18:26 Taken DME for Discharge [COMM] Stat Oth 03/19/21 19:42 Ordered - Re-Assessments/Exams Free Text/Narrative Re-Assessment/Exam: 03/19/21 18:29 A left wrist x-ray was obtained. 03/19/21 19:40 X-ray shows a likely distal scaphoid fracture and a possible nondisplaced distal radius fracture. This was reviewed with Dr. Markham. The left forearm was placed in a splint, and a sling, and she will recheck with Dr. Markham on . She has tramadol at home. Departure - Departure Time of Disposition: 20:20 Disposition: Home, Self-Care 01 Clinical Impression: Fracture of scaphoid of left wrist Qualifiers: Encounter type: initial encounter Scaphoid bone location: distal pole Fracture type: closed Fracture alignment: displaced Qualified Code(s): S62.012A - Displaced fracture of distal pole of navicular [scaphoid] bone of left wrist, initial encounter for closed fracture - Discharge Information Instructions: Wrist Fracture Treated With Immobilization, [id number] Referrals: PCP,None [Primary Care Provider] - Forms: ED Department Discharge Care Plan Goals: Use sling until recheck on , call Dr. Markham's office tomorrow morning for an appointment time. A regular dose of ibuprofen will be helpful, add tramadol if needed for extra pain control. Sepsis Event Note (ED) - Evaluation Sepsis Screening Result: No Definite Risk - Focused Exam Vital Signs: Vital Signs Temp Pulse Resp BP Pulse Ox 03/19/21 18:23 97.1 F 70 16 122/49 L 98 03/19/21 18:06 97.1 F 70 16 122/49 L 98 - My Orders Last 24 Hours: My Active Orders 03/19/21 18:26 Wrist Comp Min 3V Lt [CR] Stat 03/19/21 19:42 Consult to Orthopedic Clinic [CONS] Routine DME for Discharge [COMM] Stat - Assessment/Plan Last 24 Hours: My Active Orders 03/19/21 18:26 Wrist Comp Min 3V Lt [CR] Stat 03/19/21 19:42 Consult to Orthopedic Clinic [CONS] Routine DME for Discharge [COMM] Stat
[2021-03-19 18:48] VITALS: BP 122/49; PULSE 70
--- NOTE | 2021-03-20 08:52 | CR ---
Wrist Comp Min 3V Lt CLINICAL HISTORY: Fall, pain FINDINGS: There is a nondisplaced fracture through the distal radial metaphysis. There is no articular surface involvement. There is moderate osteoarthritis throughout the carpal junctions and the first carpometacarpal joint. There is spurring at the scaphoid. No definite fracture seen. Bones appear osteoporotic Impression: Nondisplaced fracture distal radius Osteoarthritis Osteoporosis
== END 2021-03-19 20:20 | disposition home or self-care (01) ==
LOC: JP.ED 17:53
DX: S62.012A Displaced fracture of distal pole of navicular [scaphoid] bone of left wrist, initial encounter for closed fracture (principal); S50.312A Abrasion of left elbow, initial encounter; E03.9 Hypothyroidism, unspecified; Z88.0 Allergy status to penicillin; Z79.899 Other long term (current) drug therapy; W18.30XA Fall on same level, unspecified, initial encounter; Y92.59 Other trade areas as the place of occurrence of the external cause
CPT/HCPCS: 29125; 73110-26-LT; 73110-LT; 99283-25

== ENCOUNTER 2025-08-18 19:00 | Emergency (ER) | payer MEDICARE, BC ==
[2025-08-18] MEDS ORDERED: Sodium Chloride 0.9% 10 ML Syringe FLUSH PRN (19:17)
[2025-08-18] MEDS: diphenhydrAMINE 50 MG/ML SDV IVPUSH ONE (19:23)
[2025-08-18] MEDS: Nitroglycerin 0.4 MG Tab.SL SL PRN (19:23)
[2025-08-18 19:24] LABS: BASOPHILS ABSOLUTE AUTO 0.04 K/uL (0.00-0.10); BASOPHILS PERCENT AUTO 0.7 % (0.1-1.3); EOSINOPHILS ABSOLUTE AUTO 0.12 K/uL (0.00-0.40); EOSINOPHILS PERCENT AUTO 2.0 % (0.0-5.4); IMMATURE GRAN ABSOLUTE AUTO 0.01 K/uL (0.00-0.23); IMMATURE GRAN PERCENT AUTO 0.2 % (0.0-0.7); LYMPHOCYTES ABSOLUTE AUTO 1.93 K/uL (0.8-3.3); LYMPHOCYTES PERCENT AUTO 31.5 % (11.4-47.7); MONOCYTES ABSOLUTE AUTO 0.60 K/uL (0.20-0.90); MONOCYTES PERCENT AUTO 9.8 % (3.3-12.6); NEUTROPHILS ABSOLUTE AUTO 3.42 K/uL (1.0-7.6); NEUTROPHILS PERCENT AUTO 55.8 % (40.0-78.1); PLATELET COUNT,PLT 205 K/uL (130-375); RED BLOOD CELL COUNT 4.43 M/uL (3.77-5.24); WHITE BLOOD CELL COUNT,WBC 6.1 K/uL (3.2-11.0)
[2025-08-18 19:42] LABS: A/G RATIO 1.1 (1.2-2.2); ALANINE AMINOTRANSFERASE,ALT 20 U/L (12-78); ASPARTATE AMNIOTRANSFERASE,AST 18 U/L (15-37); BILIRUBIN TOTAL 0.3 mg/dL (0.2-1.0); BLOOD UREA NITROGEN,BUN 13 mg/dL (7-18); CARBON DIOXIDE,CO2 26 mmol/L (21-32); CHLORIDE,CL 103 mmol/L (100-108); CREATININE 0.7 mg/dL (0.6-1.0); EST CRCL DRUG DOSING (CG) 54.43 mL/min; ESTIMATED GFR 87 mL/min (>60); GLUCOSE RANDOM 108 mg/dL (74-106); POTASSIUM,K 3.8 mmol/L (3.6-5.2); PROTEIN TOTAL,TP 7.7 g/dL (6.4-8.2); SODIUM,NA 140 mmol/L (140-148); TROPONIN I HIGH SENSITIVITY 13.8 pg/mL (<=60.3)
[2025-08-18] MEDS: Ketorolac 30 MG/ML SDV IVPUSH ONE (20:24)
[2025-08-18] MEDS ORDERED: Scopalamine 1mg/3day Transdermal Patch TRDERM PRN (20:30)
[2025-08-18 21:59] VITALS: BP 134/74; PULSE 75
[2025-08-18] MEDS: Sodium Chloride 0.9% 10 ML Syringe FLUSH ONE (22:46)
[2025-08-18] MEDS: Iopamidol 755 Mg/ML 100 ML Bottle IV ONE (22:46)
== END 2025-08-18 23:52 | disposition home or self-care (01) ==
LOC: JP.ED 19:00
DX: R07.89 Other chest pain (principal); E03.9 Hypothyroidism, unspecified; Z88.0 Allergy status to penicillin; Z91.018 Allergy to other foods; Z79.890 Hormone replacement therapy; Z79.899 Other long term (current) drug therapy
CPT/HCPCS: 36415; 71045; 71275; 80053; 84484; 85025; 85379; 93005; 96374; 96375; 99285; A9270; J1200; J1885; J2270; Q9967